=== PATIENT | female | born 1990 | race African-American/Black ===

== ENCOUNTER 2022-06-13 09:25 | Emergency (ER) | payer MEDICAID ==
[~2022-06-13] VITALS: Ht 172.7 cm; Wt 70.0 kg
[~2022-06-13 09:25] MED LIST: PREN-88 PO
[2022-06-13] MEDS ORDERED: LORAZEPAM 2MG/ML CPJ IM ONE (10:00)
[2022-06-13 10:16] LABS: EOSINOPHILS % 0.9 % (0.0-5.0); HEMATOCRIT. 35.9 % (36.0-48.0); LYMPHOCYTES % 18.4 % (20.0-50.0); MEAN CORPUSCULAR HEMOGLOBIN 30.8 pg (28.0-32.0); MEAN PLATELET VOLUME 7.7 fl (7.4-10.4); MONOCYTES % 12.1 % (2.0-8.0); NEUTROPHILS % 67.6 % (40.0-76.0); PLATELET 235 x1000/uL (130-400); RED CELL DISTRIBUTION WIDTH 12.7 % (11.6-14.6)
[2022-06-13 10:27] LABS: CHLORIDE 108 mEq/L (98-107)
[2022-06-13] MEDS ORDERED: POTASSIUM CHLORIDE 20MEQ TABLET SR PO ONE (10:45)
[2022-06-13] MEDS ORDERED: POTASSIUM CHLORIDE 20MEQ/PACKET PO ONE (11:00)
[2022-06-13 12:27] VITALS: BP 115/60
== END 2022-06-13 12:30 | disposition home or self-care (01) ==
LOC: ER 09:25
DX: E87.6 Hypokalemia (principal); R42 Dizziness and giddiness; Z85.3 Personal history of malignant neoplasm of breast
CPT/HCPCS: 36415; 80053; 81025; 85025; 93005; 96372; 99284; J2060; Z7610